=== PATIENT | female | born 1970 | race African-American/Black ===

== ENCOUNTER 2018-06-16 08:54 | Inpatient (IN) ==
[2018-06-16] MEDS ORDERED: amLODIPine 5 MG TABLET PO STA (09:21)
[2018-06-16] MEDS ORDERED: FUROSEMIDE 100 MG/10 ML VIAL IV STA (09:21)
[2018-06-16 09:30] LABS: Basophils # 0.1 10*3/uL (0.0-0.2); Basophils % 0.8 % (0.0-0.8); Eosinophils # 0.2 10*3/uL (0.0-0.87); Eosinophils % 3.2 % (0.00-10.9); Hematocrit 38.9 VOL% (35.7-47.0); Hemoglobin 12.1 GM/DL (12.0-16.0); Immature Granulocytes % 0.5 %; Immature Granulocytes Absolute 0.03 #; Lymphocytes # 1.2 10*3/uL (1.4-4.0); Lymphocytes % 17.9 % (21.3-54.2); Mean Corpuscular HGB Conc 31.1 GM/DL (32-36); Mean Corpuscular Hemoglobin 27 PG (27-34); Mean Platelet Volume 10.7 FL (9.6-12.0); Monocytes # 0.5 10*3/uL (0.11-0.8); Monocytes % 8.1 % (1.7-12.7); Neutrophils # 4.6 10*3/uL (1.4-7.4); Neutrophils % 69.5 % (38.7-73.9); Platelet Count 262 T/CUMM (130-400); Red Blood Count 4.42 MC/CUMM (3.8-5.5); Red Cell Distribution Width 14.9 % (9.3-17.3); White Blood Count 6.6 T/CUMM (4-12)
[2018-06-16 09:52] LABS: Albumin 3.4 G/DL (3.4-5.0); Bilirubin,Total 0.5 MG/DL (0.2-1.0); Calcium 8.4 MG/DL (8.5-10.1); Potassium 3.7 MMOL/L (3.5-5.1); Total Protein 6.7 G/DL (6.4-8.3)
[2018-06-16] MEDS ORDERED: ONDANSETRON 4 MG/2 ML VIAL IV PRN (12:35)
[2018-06-16] MEDS ORDERED: ACETAMINOPHEN 325 MG TABLET PO PRN (12:35)
[2018-06-16] MEDS ORDERED: MAGNESIUM SULF RIDER 4 GM in PREMIX 1 EACH IV PRN (12:37)
[2018-06-16] MEDS ORDERED: MAGNESIUM SULF RIDER 2 GM in PREMIX 1 EACH IV PRN (12:37)
[2018-06-16 15:36] LABS: Troponin I < 0.015 NG/ML (0.00-0.045)
[2018-06-16] MEDS ORDERED: ALBUTEROL/IPRATROPIUM 3 ML NEB RESP TX PRN (15:56)
[2018-06-16] MEDS: FUROSEMIDE 40 MG/4 ML VIAL IV SCH (17:28)
[2018-06-16 17:46] LABS: Apearance,Urine CLEAR (Clear); Bilirubin,Urine Negative (Negative); Blood, Urine Negative (Negative); Glucose,Urine (UA) Negative (Negative); Ketones,Urine Negative (Negative); Nitrite,Urine Negative (Negative); Protein,Urine Negative; Squamous Epithelial Cell,Urine Occasional /HPF (0-10); Urine Color Colorless (Yellow); Urine Specific Gravity 1.009 (1.001-1.035); Urine Urobilinogen < 2.0 EU/DL (0.2-1.0); WBC,Urine <1 /HPF (0-6)
[2018-06-16] MEDS: CARVEDILOL 12.5 MG TABLET PO SCH (21:17)
[2018-06-16] MEDS: GABAPENTIN 300 MG CAPSULE PO SCH (21:17)
[2018-06-16 22:04] LABS: Troponin I < 0.015 NG/ML (0.00-0.045)
[2018-06-17 06:29] LABS: Basophils # 0.1 10*3/uL (0.0-0.2); Basophils % 0.7 % (0.0-0.8); Eosinophils # 0.2 10*3/uL (0.0-0.87); Eosinophils % 2.7 % (0.00-10.9); Hematocrit 35.4 VOL% (35.7-47.0); Hemoglobin 11.3 GM/DL (12.0-16.0); Immature Granulocytes % 0.4 %; Immature Granulocytes Absolute 0.03 #; Lymphocytes # 1.3 10*3/uL (1.4-4.0); Lymphocytes % 18.9 % (21.3-54.2); Mean Corpuscular HGB Conc 31.9 GM/DL (32-36); Mean Corpuscular Hemoglobin 28 PG (27-34); Mean Corpuscular Volume 87.4 FL (87-102); Mean Platelet Volume 11.1 FL (9.6-12.0); Monocytes # 0.6 10*3/uL (0.11-0.8); Monocytes % 8.5 % (1.7-12.7); Neutrophils # 4.8 10*3/uL (1.4-7.4); Neutrophils % 68.8 % (38.7-73.9); Platelet Count 219 T/CUMM (130-400); Red Blood Count 4.05 MC/CUMM (3.8-5.5); Red Cell Distribution Width 14.7 % (9.3-17.3); White Blood Count 6.9 T/CUMM (4-12)
[2018-06-17 07:01] LABS: Osmolality,Calculated 279.1 MOS/KG (273-304); Thyroid Stimulating Hormone 1.59 uIU/ml (0.358-3.74)
[2018-06-17] MEDS: GABAPENTIN 300 MG CAPSULE PO SCH ×2 (09:32→20:12)
[2018-06-17] MEDS: CARVEDILOL 12.5 MG TABLET PO SCH ×2 (09:32→20:12)
[2018-06-17] MEDS: ATORVASTATIN 20 MG TABLET PO SCH (09:33)
[2018-06-17] MEDS: FLUoxetine 20 MG CAPSULE PO SCH (09:33)
[2018-06-17] MEDS: PANTOPRAZOLE 40 MG TABLET PO SCH (09:33)
[2018-06-17] MEDS: FUROSEMIDE 40 MG/4 ML VIAL IV SCH ×2 (09:33→17:31)
[2018-06-17] MEDS: POTASSIUM CHLORIDE 20 MEQ TABLET PO PRN ×3 (09:33→14:31)
[2018-06-17] MEDS: diphenhydrAMINE CAP 25 MG CAPSULE PO PRN (23:52)
[2018-06-18 04:01] LABS: Basophils % 0.5 % (0.0-0.8); Eosinophils # 0.3 10*3/uL (0.0-0.87); Eosinophils % 3.3 % (0.00-10.9); Hematocrit 40.9 VOL% (35.7-47.0); Hemoglobin 12.7 GM/DL (12.0-16.0); Immature Granulocytes % 0.7 %; Immature Granulocytes Absolute 0.05 #; Lymphocytes # 1.4 10*3/uL (1.4-4.0); Mean Corpuscular HGB Conc 31.1 GM/DL (32-36); Mean Corpuscular Hemoglobin 27 PG (27-34); Mean Corpuscular Volume 88.1 FL (87-102); Monocytes # 0.8 10*3/uL (0.11-0.8); Monocytes % 10.8 % (1.7-12.7); Neutrophils % 65.7 % (38.7-73.9); Platelet Count 289 T/CUMM (130-400); Red Blood Count 4.64 MC/CUMM (3.8-5.5); Red Cell Distribution Width 14.8 % (9.3-17.3); White Blood Count 7.6 T/CUMM (4-12)
[2018-06-18 04:28] LABS: Osmolality,Calculated 280.4 MOS/KG (273-304); Potassium 3.4 MMOL/L (3.5-5.1)
[2018-06-18] MEDS: ATORVASTATIN 20 MG TABLET PO SCH (08:50)
[2018-06-18] MEDS: CARVEDILOL 12.5 MG TABLET PO SCH ×2 (08:50→20:46)
[2018-06-18] MEDS: GABAPENTIN 300 MG CAPSULE PO SCH ×2 (08:50→20:46)
[2018-06-18] MEDS: FUROSEMIDE 40 MG/4 ML VIAL IV SCH (08:50)
[2018-06-18] MEDS: FLUoxetine 20 MG CAPSULE PO SCH (08:50)
[2018-06-18] MEDS: PANTOPRAZOLE 40 MG TABLET PO SCH (08:50)
[2018-06-18] MEDS: POTASSIUM CHLORIDE 20 MEQ TABLET PO PRN ×4 (08:50→19:03)
[2018-06-18] MEDS: FUROSEMIDE 40 MG TABLET PO SCH (16:26)
[2018-06-18] MEDS: diphenhydrAMINE CAP 25 MG CAPSULE PO PRN (21:23)
[2018-06-19 07:38] VITALS: BP 131/76
[2018-06-19] MEDS: FLUoxetine 20 MG CAPSULE PO SCH (08:41)
[2018-06-19] MEDS: ATORVASTATIN 20 MG TABLET PO SCH (08:42)
[2018-06-19] MEDS: GABAPENTIN 300 MG CAPSULE PO SCH (08:42)
[2018-06-19] MEDS: PANTOPRAZOLE 40 MG TABLET PO SCH (08:42)
[2018-06-19] MEDS: CARVEDILOL 12.5 MG TABLET PO SCH (08:42)
[2018-06-19] MEDS: FUROSEMIDE 40 MG TABLET PO SCH (08:42)
== END 2018-06-19 11:26 | disposition home or self-care (01) | DRG 187 ==
LOC: N.ED 08:54 → N.EDINP 11:48 → N.2W 12:29 → N.2E 15:47
PROVIDERS: ADMIT Internal Medicine; ATTEND Internal Medicine